=== PATIENT | male | born 1995 | race Caucasian/White ===

== ENCOUNTER 2017-05-15 18:35 | Emergency (ER) | payer OTHER ==
[~2017-05-15] VITALS: Ht 188 cm; Wt 76.6 kg
[2017-05-15 18:35] VITALS: BP 152/98
[~2017-05-15 18:35] MED LIST: IRON1TAB62 PO; PANT40TA3 PO; SUCR1TAB26 PO
[2017-05-15] MEDS ORDERED: SUMA100T4 PO (18:56)
[2017-05-15] MEDS ORDERED: MULT-297 PO (18:56)
[2017-05-15] MEDS ORDERED: LIDOCAINE 1%, 20ML ONE (18:58)
[2017-05-15] MEDS ORDERED: DIPH,PERTUSS(ACELL),TET VAC/PF 0.5 ML IM-VACC ONE ×2 (18:58→19:00)
[2017-05-15] MEDS ORDERED: LIDOCAINE 1%, 20ML SQ ONE (19:00)
[2017-05-15] MEDS ORDERED: BACITRACIN ZINC OINT 500U/GM, 0.9 GM ONE (19:24)
== END 2017-05-15 19:28 | disposition home or self-care (01) ==
LOC: ED 19:15
DX: S01.01XA Laceration without foreign body of scalp, initial encounter (principal); W18.09XA Striking against other object with subsequent fall, initial encounter; Y93.89 Activity, other specified; Y92.89 Other specified places as the place of occurrence of the external cause; Y99.8 Other external cause status
CPT/HCPCS: 12001; 90471; 90715